=== PATIENT | female | born 1950 | race Caucasian/White ===

== ENCOUNTER 2017-02-09 18:40 | Emergency (ER) | payer MEDICARE ==
[~2017-02-09] VITALS: Ht 157.4 cm; Wt 108.4 kg
[~2017-02-09 18:40] MED LIST: ALLOPURINOL100 MG PO; AMBIEN10 M1 PO; ARAVA20 MG PO; ATARAX,VISTARIL10 MG PO; BACTRIM DS 8001 TA1 PO; BIAXIN500 MG PO; CELEXA20 MG PO; CITALOPRAM20 MG PO; CLARITIN10 MG PO; CLOTRIMAZOLE10 MG MM; DELTASONE10 MG PO; DOXYCYCLINE MO100 MG PO; DOXYCYCLINE100 MG PO; DULCOLAX100 MG PO; DUONEB 3 MG/3 ML3 M1 NEB; FLOVENT DI50 MCG/Act IH; HYDROCHLOR50 MG PO; HYDROCODON-ACE1 EACH PO; HYDROCODONE BIT1 T11 PO; Hydrocortisone30 GM PO; IBUPROFEN600 MG PO; KEFLEX500 MG PO; KLONOPIN0.5 MG PO; METFORMIN500 MG PO; MYCOSTATIN100000 U/M PO; NORCO 325 MG-101 TAB PO; OXYBUTYNIN5 MG PO; PERCOCET 325 MG1 TA5 PO; PREDNICOT20 MG PO; PREDNISONE10 MG PO; PREDNISONE50 MG PO; PRILOSEC20 M2 PO; PRILOSEC20 MG PO; RA COLD RLF MU1 EACH PO; ROBITUSSIN AC 110 ML PO; SINGULAIR10 MG PO; SYNTHROID,LEV100 MCG PO; SYNTHROID0.075 MG PO; TRAMADOL50 MG PO; VICO10300 PO; VIT B-6100 MG PO; VITAMIN D1000 IU PO; VITAMIN D50000 I3 PO; WELLBUTRIN SR150 MG PO
[2017-02-09] MEDS ORDERED: GABAPENTIN400 MG PO (18:52)
[2017-02-09] MEDS ORDERED: PERCOCET 325 MG1 TA7 PO (18:53)
[2017-02-09] MEDS ORDERED: METRONIDAZOLE0.752 T (18:53)
[2017-02-09] MEDS ORDERED: PROAIR HFA8.5 GM INH (18:54)
[2017-02-09] MEDS ORDERED: AMBIEN5 MG PO (18:54)
[2017-02-09] MEDS ORDERED: ASPIR-TRIN325 MG PO (18:55)
[2017-02-09] MEDS ORDERED: BACLOFEN20 M1 PO (18:56)
[2017-02-09] MEDS ORDERED: COLACE100 MG PO (18:56)
[2017-02-09] MEDS ORDERED: DULCOLAX10 M1 R (18:57)
[2017-02-09 19:47] LABS: BASO % 0.5 % (0.0-1.0); EOS # 0.1 10*3/uL (0.0-0.4); EOS % 1.7 % (1.0-4.0); HEMATOCRIT 29.8 % (37.0-47.0); IG # 0.1 10*3/uL (0.0-0.1); LYMPH # 1.7 10*3/uL (1.3-4.4); LYMPH % 30.4 % (27.0-41.0); MEAN CELL VOLUME 84.4 fl (81.0-99.0); MEAN CORPUSCULAR HGB 25.5 pg (27.0-31.0); MEAN CORPUSCULAR HGB CONC 30.2 g/dl (33.0-37.0); MEAN PLATELET VOLUME 8.9 fl (9.6-12.3); MONO # 0.4 10*3/uL (0.1-1.0); MONO % 7.3 % (3.0-9.0); NEUT # 3.4 10*3/uL (2.3-7.9); NEUT % 59.2 % (47.0-73.0); PLATELET COUNT AUTOMATED 279 10*3/uL (130-400); RED BLOOD COUNT 3.53 10*6/uL (4.10-5.10); RED CELL DISTRI WIDTH 17.4 % (0-14.5); WHITE BLOOD COUNT 5.7 10*3/uL (4.8-10.8)
[2017-02-09 20:01] LABS: ALBUMIN 2.8 gm/dl (3.1-4.5); ALKALINE PHOSPHATASE 147 U/L (45-117); BILIRUBIN, TOTAL 0.2 mg/dl (0.2-1.0); BUN 14 mg/dl (7-24); C-REACTIVE PROTEIN 4.23 MG/DL (0-0.3); CARBON DIOXIDE 27 mmol/L (21-32); CHLORIDE 106 mmol/L (98-107); EST GLOM FILT AFRICAN AMERICAN > 60 ml/min; GLUCOSE 126 mg/dL (65-99); SGOT/AST 19 IU/L (3-35); SGPT/ALT 28 U/L (12-78); SODIUM 142 mmol/L (136-145); TOTAL PROTEIN 6.5 gm/dL (6.4-8.2)
== END 2017-02-09 20:28 | disposition home or self-care (01) ==
LOC: ED 18:40
PROVIDERS: Physician Assistant
DX: G89.18 Other acute postprocedural pain (principal); Z91.040 Latex allergy status; Z79.899 Other long term (current) drug therapy

== ENCOUNTER → 2017-02-25 | Day surgery (SDC) | payer MEDICARE ==
[~2017-02-25] VITALS: Ht 157.4 cm; Wt 113.4 kg
[~2017-02-25] MED LIST changes: +AMBIEN5 MG PO; +ASPIR-TRIN325 MG PO; +BACLOFEN20 M1 PO; +COLACE100 MG PO; +DULCOLAX10 M1 R; +GABAPENTIN400 MG PO; +METRONIDAZOLE0.752 T; +PERCOCET 325 MG1 TA7 PO; +PROAIR HFA8.5 GM INH
[2017-02-25 11:35] VITALS: BP 140/52
[2017-02-25 12:10] VITALS: BP 120/50
[2017-02-25 12:25] VITALS: BP 142/63
[2017-02-25 12:40] VITALS: BP 128/59
== END | disposition home or self-care (01) ==
LOC: SDC 02-16 09:30
DX: K22.2 Esophageal obstruction (principal); K29.50 Unspecified chronic gastritis without bleeding; K21.9 Gastro-esophageal reflux disease without esophagitis; I10 Essential (primary) hypertension; J44.9 Chronic obstructive pulmonary disease, unspecified; F41.9 Anxiety disorder, unspecified; F32.9 Major depressive disorder, single episode, unspecified; E03.9 Hypothyroidism, unspecified; Z96.653 Presence of artificial knee joint, bilateral; Z88.8 Allergy status to other drugs, medicaments and biological substances; Z98.890 Other specified postprocedural states; Z87.891 Personal history of nicotine dependence

== ENCOUNTER → 2021-08-28 | Outpatient (CLI) | payer MEDICARE | END | disposition home or self-care (01) | LOC: COVID19 16:56 | PROVIDERS: ATTEND Internal Medicine | DX: Z11.52 Encounter for screening for COVID-19 (principal) ==

== ENCOUNTER 2023-09-19 23:03 | Emergency (ER) | payer MEDICARE ==
[2023-09-20 00:31] LABS: BASO % 0.3 % (0.0-1.0); EOS % 0.3 % (1.0-4.0); HEMATOCRIT 42.2 % (37.0-47.0); LYMPH # 1.8 10*3/uL (1.3-4.4); LYMPH % 15.9 % (27.0-41.0); MEAN CELL VOLUME 87.4 fl (81.0-99.0); MEAN CORPUSCULAR HGB 27.5 pg (27.0-31.0); MEAN CORPUSCULAR HGB CONC 31.5 g/dl (33.0-37.0); MEAN PLATELET VOLUME 8.9 fl (9.6-12.3); MONO % 8.4 % (3.0-9.0); NEUT # 8.6 10*3/uL (2.3-7.9); NEUT % 74.8 % (47.0-73.0); PLATELET COUNT AUTOMATED 229 10*3/uL (130-400); RED BLOOD COUNT 4.83 10*6/uL (4.10-5.10); RED CELL DISTRI WIDTH 13.6 % (0-14.5); WHITE BLOOD COUNT 11.5 10*3/uL (4.8-10.8)
[2023-09-20 00:37] LABS: BILIRUBIN Negative (Negative); BLOOD Negative (Negative); CLARITY Clear (Clear); COLOR Yellow (Yellow); GLUCOSE Negative (Negative); KETONE Negative (Negative); LEUKO ESTERASE Trace (Negative); NITRITE Negative (Negative); SPECIFIC GRAVITY 1.015 (1.001-1.030); UROBILINOGEN 0.2 E.U./dl (0.0-1.0)
[2023-09-20 00:39] LABS: POTASSIUM 4.1 mmol/L (3.4-5.1); TOTAL PROTEIN 6.6 gm/dL (6.0-8.0)
[2023-09-20] MEDS ORDERED: SODIUM CHLORIDE 0.9% 1,000 ML IV SCH (00:50)
[2023-09-20 00:52] LABS: WBC 31-40 wbc/hpf (0-5)
[2023-09-20] MEDS ORDERED: Ondansetron Hydrochloride 4 MG/2 ML VIAL IV ONE (02:15)
[2023-09-20] MEDS ORDERED: MORPHINE Sulfate 2 MG/ML SYR IV ONE (02:15)
== END 2023-09-20 04:55 | disposition short-term general hospital (02) ==
LOC: ED 23:03
PROVIDERS: Emergency Medicine
DX: S12.690A Other displaced fracture of seventh cervical vertebra, initial encounter for closed fracture (principal); N17.9 Acute kidney failure, unspecified; N17.0 Acute kidney failure with tubular necrosis; E87.20 Acidosis, unspecified; E03.9 Hypothyroidism, unspecified; Z98.890 Other specified postprocedural states; Z91.040 Latex allergy status; Z79.899 Other long term (current) drug therapy; Z85.43 Personal history of malignant neoplasm of ovary; X58.XXXA Exposure to other specified factors, initial encounter; Y93.89 Activity, other specified; Y92.89 Other specified places as the place of occurrence of the external cause; Y99.8 Other external cause status

== ENCOUNTER 2024-07-15 20:24 | Inpatient (IN) | payer MEDICARE ==
[~2024-07-15] VITALS: Ht 154.9 cm; Wt 68.9 kg
[2024-07-15 20:39] VITALS: BP 126/96
[2024-07-15] MEDS ORDERED: ALLERGY RELIEF180 MG PO (20:49)
[2024-07-15] MEDS ORDERED: IOHEXOL 300 MG/ML 100 ML VIAL IV ONE (20:50)
[2024-07-15] MEDS ORDERED: LEVO-T100 MCG PO (20:51)
[2024-07-15] MEDS ORDERED: MONTELUKAST SOD10 MG PO (20:52)
[2024-07-15] MEDS ORDERED: LIPITOR10 MG PO (20:52)
[2024-07-15] MEDS ORDERED: NEURONTIN400 MG PO (20:53)
[2024-07-15] MEDS ORDERED: METFORMIN HCL500 M2 PO (20:53)
[2024-07-15] MEDS ORDERED: OMEPRAZOLE40 MG PO (20:54)
[2024-07-15] MEDS ORDERED: PEPCID40 MG PO (20:54)
[2024-07-15] MEDS ORDERED: FLUOXETINE40 MG PO (20:55)
[2024-07-15] MEDS ORDERED: TRAZODONE50 MG PO (20:55)
[2024-07-15 21:10] LABS: BASO % 0.5 % (0.0-1.0); EOS # 0.1 10*3/uL (0.0-0.4); EOS % 0.8 % (1.0-4.0); HEMATOCRIT 37.5 % (37.0-47.0); MEAN CELL VOLUME 80.6 fl (81.0-99.0); MEAN CORPUSCULAR HGB 24.3 pg (27.0-31.0); MEAN CORPUSCULAR HGB CONC 30.1 g/dl (33.0-37.0); MONO # 0.6 10*3/uL (0.1-1.0); MONO % 6.6 % (3.0-9.0); NEUT # 6.3 10*3/uL (2.3-7.9); NEUT % 74.5 % (47.0-73.0); PLATELET COUNT AUTOMATED 347 10*3/uL (130-400); RED BLOOD COUNT 4.65 10*6/uL (4.10-5.10); RED CELL DISTRI WIDTH 13.5 % (0-14.5); WHITE BLOOD COUNT 8.4 10*3/uL (4.8-10.8)
[2024-07-15 21:27] LABS: ALKALINE PHOSPHATASE 107 U/L (46-116); BUN 25 mg/dl (9-23); CHLORIDE 106 mmol/L (98-107); LIPASE 36 U/L (12-53); TOTAL PROTEIN 7.8 gm/dL (6.0-8.0)
[2024-07-15 21:31] LABS: SGPT/ALT < 7 U/L (5-49)
[2024-07-15] MEDS ORDERED: ACETAMINOPHEN 325 MG TAB PO ONE (22:35)
[2024-07-15] MEDS ORDERED: SODIUM CHLORIDE 0.9% 1,000 ML IV ONE (23:45)
[2024-07-16] VITALS (7 sets, daily range): BP systolic 134–150; BP diastolic 56–82
[2024-07-16] MEDS ORDERED: SODIUM CHLORIDE 0.9% 1,000 ML IV SCH (01:10)
[2024-07-16] MEDS ORDERED: DEXTROSE 10 % IN WATER 250 ML IV PRN (01:15)
[2024-07-16 04:24] LABS: BILIRUBIN Negative (Negative); BLOOD Negative (Negative); CLARITY Clear (Clear); COLOR Yellow (Yellow); GLUCOSE Negative (Negative); KETONE Negative (Negative); LEUKO ESTERASE Negative (Negative); NITRITE Negative (Negative); PH 5.5 (4.5-8.0); UROBILINOGEN 0.2 E.U./dl (0.0-1.0)
[2024-07-16] MEDS ORDERED: Levothyroxine Sodium 100 MCG TAB PO SCH (06:00)
[2024-07-16] MEDS ORDERED: Pantoprazole Sodium 40 MG VIAL IV SCH (06:00)
[2024-07-16] MEDS ORDERED: Metoclopramide Hydrochloride 10 MG/2 ML VIAL IV SCH (07:00)
[2024-07-16] MEDS ORDERED: INSULIN REGULAR, HUMAN 1 UNIT/0.01 ML SC SCH (07:30)
[2024-07-16] MEDS ORDERED: Fluoxetine Hydrochloride 20 MG CAP PO SCH ×2 (10:00)
[2024-07-16] MEDS ORDERED: Polyethylene Glycol 3350 17 GM PACKET PO SCH ×2 (18:00→18:34)
[2024-07-16] MEDS ORDERED: ACETAMINOPHEN 500 MG TAB PO PRN (19:50)
[2024-07-17] VITALS: BP 156/88
[2024-07-17 07:00] LABS: POTASSIUM 3.9 mmol/L (3.4-5.1)
[2024-07-17 07:40] LABS: BASO % 1.1 % (0.0-1.0); EOS # 0.1 10*3/uL (0.0-0.4); EOS % 1.4 % (1.0-4.0); HEMATOCRIT 30.4 % (37.0-47.0); MEAN CELL VOLUME 79.4 fl (81.0-99.0); MEAN CORPUSCULAR HGB 24.3 pg (27.0-31.0); MEAN CORPUSCULAR HGB CONC 30.6 g/dl (33.0-37.0); MEAN PLATELET VOLUME 9.6 fl (9.6-12.3); MONO # 0.3 10*3/uL (0.1-1.0); MONO % 9.3 % (3.0-9.0); NEUT # 1.5 10*3/uL (2.3-7.9); PLATELET COUNT AUTOMATED 253 10*3/uL (130-400); RED BLOOD COUNT 3.83 10*6/uL (4.10-5.10); RED CELL DISTRI WIDTH 13.5 % (0-14.5); WHITE BLOOD COUNT 3.5 10*3/uL (4.8-10.8)
[2024-07-17 08:00] VITALS: BP 116/57; BP 163/75
[2024-07-17] MEDS ORDERED: busPIRone Hydrochloride 10 MG TAB PO PRN (14:10)
[2024-07-17 16:00] VITALS: BP 115/64
[2024-07-17 20:00] VITALS: BP 157/79
[2024-07-17] MEDS ORDERED: Ropinirole Hydrochloride 1 MG TAB PO SCH (22:00)
[2024-07-18] VITALS: BP 146/72
[2024-07-18 06:37] LABS: EOS # 0.1 10*3/uL (0.0-0.4); EOS % 1.6 % (1.0-4.0); HEMATOCRIT 32.2 % (37.0-47.0); MEAN CELL VOLUME 80.3 fl (81.0-99.0); MEAN CORPUSCULAR HGB 24.2 pg (27.0-31.0); MEAN CORPUSCULAR HGB CONC 30.1 g/dl (33.0-37.0); MEAN PLATELET VOLUME 8.9 fl (9.6-12.3); MONO # 0.4 10*3/uL (0.1-1.0); MONO % 9.6 % (3.0-9.0); NEUT # 1.5 10*3/uL (2.3-7.9); NEUT % 37.5 % (47.0-73.0); PLATELET COUNT AUTOMATED 249 10*3/uL (130-400); RED BLOOD COUNT 4.01 10*6/uL (4.10-5.10); RED CELL DISTRI WIDTH 13.4 % (0-14.5); WHITE BLOOD COUNT 3.9 10*3/uL (4.8-10.8)
[2024-07-18 06:58] LABS: POTASSIUM 4.1 mmol/L (3.4-5.1)
[2024-07-18 08:00] VITALS: BP 177/77
[2024-07-18 09:02] VITALS: BP 164/74
[2024-07-18] MEDS ORDERED: Polyethylene Glycol 3350 17 GM PACKET PO SCH (10:00)
[2024-07-18 11:56] VITALS: BP 182/79
[2024-07-18] MEDS ORDERED: MIRALAX POWDER17 G1 PO (12:02)
[2024-07-18 12:45] VITALS: BP 166/78
== END 2024-07-18 13:40 | disposition home or self-care (01) | DRG 388 ==
LOC: ED 20:24 → 4E 23:53 → EDHOLD 23:53 → 4E 07-16 14:51
PROVIDERS: Internal Medicine; ADMIT Internal Medicine; ATTEND Internal Medicine
DX: K56.690 Other partial intestinal obstruction (principal); N17.0 Acute kidney failure with tubular necrosis; F33.1 Major depressive disorder, recurrent, moderate; K59.00 Constipation, unspecified; K21.00 Gastro-esophageal reflux disease with esophagitis, without bleeding; E03.9 Hypothyroidism, unspecified; N18.32 Chronic kidney disease, stage 3b; F41.1 Generalized anxiety disorder; Z85.43 Personal history of malignant neoplasm of ovary; J44.89 Other specified chronic obstructive pulmonary disease; K74.60 Unspecified cirrhosis of liver; I12.9 Hypertensive chronic kidney disease with stage 1 through stage 4 chronic kidney disease, or unspecified chronic kidney disease; E66.09 Other obesity due to excess calories; E78.00 Pure hypercholesterolemia, unspecified; E11.22 Type 2 diabetes mellitus with diabetic chronic kidney disease; Z88.7 Allergy status to serum and vaccine; Z91.040 Latex allergy status; Z79.84 Long term (current) use of oral hypoglycemic drugs; Z79.899 Other long term (current) drug therapy